=== PATIENT | male | born 1950 | race African-American/Black ===

== ENCOUNTER 2017-09-27 16:06 | Emergency (ER) | payer MEDICARE, MEDICAID ==
[~2017-09-27] VITALS: Ht 185.4 cm; Wt 91.0 kg
[2017-09-27 16:12] VITALS: BP 136/90
[2017-10-01] MEDS ORDERED: COR6 PO (13:52)
[2017-10-01] MEDS ORDERED: LISI-186 PO (13:52)
== END 2017-09-27 17:24 | disposition left against medical advice (07) ==
LOC: ER 16:32
DX: Z53.21 Procedure and treatment not carried out due to patient leaving prior to being seen by health care provider (principal)
CPT/HCPCS: 93005

== ENCOUNTER 2018-09-03 07:43 | Emergency (ER) | payer MEDICARE, MEDICAID ==
[~2018-09-03] VITALS: Ht 185.4 cm; Wt 92.0 kg
[~2018-09-03 07:43] MED LIST: COR6 PO; LISI-186 PO
[2018-09-03 07:49] VITALS: BP 159/59
== END 2018-09-03 08:44 | disposition home or self-care (01) ==
LOC: ER 08:08
DX: L03.313 Cellulitis of chest wall (principal); F17.200 Nicotine dependence, unspecified, uncomplicated; Z98.890 Other specified postprocedural states
CPT/HCPCS: 99283

== ENCOUNTER 2020-02-17 13:26 | Emergency (ER) | payer BC, MEDICAID ==
[~2020-02-17] VITALS: Ht 185.4 cm; Wt 100.0 kg
[2020-02-17] MEDS ORDERED: KETOROLAC 30MG/ML VIAL IM ONE (14:30)
[2020-02-17 14:48] VITALS: BP 159/107
== END 2020-02-17 16:44 | disposition home or self-care (01) ==
LOC: ER 14:21
DX: M19.90 Unspecified osteoarthritis, unspecified site (principal); Z79.899 Other long term (current) drug therapy
CPT/HCPCS: 73560; 96372; 99283; J1885

== ENCOUNTER 2021-03-14 10:44 | Emergency (ER) | payer BC, MEDICAID ==
[~2021-03-14] VITALS: Ht 182.9 cm; Wt 80.0 kg
[2021-03-14] MEDS ORDERED: FUROSEMIDE 20MG/2ML VIAL IVP ONE (11:15)
[2021-03-14 11:24] LABS: BASOPHILS % 0.4 % (0.0-2.0); EOSINOPHILS % 0.1 % (0.0-5.0); HEMATOCRIT. 44.1 % (42.0-52.0); HEMOGLOBIN. 14.7 g/dL (14.0-18.0); LYMPHOCYTES % 10.7 % (20.0-50.0); MEAN CORPUSCULAR HEMOGLOBIN 31.3 pg (28.0-32.0); MEAN CORPUSCULAR VOLUME 93.6 fL (80.0-94.0); MONOCYTES % 6.2 % (2.0-8.0); NEUTROPHILS % 82.6 % (40.0-76.0); PLATELET 173 x1000/uL (130-400); RED BLOOD CELL COUNT 4.72 mill/uL (4.7-6.1); RED CELL DISTRIBUTION WIDTH 15.5 % (11.6-14.6)
[2021-03-14] MEDS ORDERED: IPRATROPIUM BROMIDE (0.02%) 0.5MG/2.5ML NEB HHN STA (11:24)
[2021-03-14] MEDS ORDERED: ALBUTEROL (0.083%) 2.5MG/3ML NEB HHN STA (11:24)
[2021-03-14 11:31] LABS: CHLORIDE 106 mEq/L (98-107)
[2021-03-14 16:03] VITALS: BP 142/89
== END 2021-03-14 16:15 | disposition short-term general hospital (02) ==
LOC: ER 10:44 → CANBEDREQ 17:27
DX: I11.0 Hypertensive heart disease with heart failure (principal); I50.9 Heart failure, unspecified; I25.2 Old myocardial infarction; E78.00 Pure hypercholesterolemia, unspecified
CPT/HCPCS: 36415; 71045; 74176; 80053; 83690; 83880; 84484; 85025; 93005; 94640; 96374; 99285; J1940

== ENCOUNTER 2021-04-01 10:08 | Emergency (ER) | payer BC, MEDICAID ==
[~2021-04-01] VITALS: Ht 172.7 cm; Wt 82.0 kg
[2021-04-01 11:06] LABS: BASOPHILS % 0.5 % (0.0-2.0); EOSINOPHILS % 0.1 % (0.0-5.0); HEMATOCRIT. 39.9 % (42.0-52.0); HEMOGLOBIN. 13.7 g/dL (14.0-18.0); LYMPHOCYTES % 13.9 % (20.0-50.0); MEAN CORPUSCULAR HEMOGLOBIN 31.8 pg (28.0-32.0); MEAN CORPUSCULAR VOLUME 92.4 fL (80.0-94.0); MEAN PLATELET VOLUME 10.5 fl (7.4-10.4); MONOCYTES % 5.4 % (2.0-8.0); NEUTROPHILS % 80.1 % (40.0-76.0); PLATELET 224 x1000/uL (130-400); RED BLOOD CELL COUNT 4.32 mill/uL (4.7-6.1); RED CELL DISTRIBUTION WIDTH 15.5 % (11.6-14.6)
[2021-04-01 11:13] LABS: CHLORIDE 105 mEq/L (98-107)
[2021-04-01] MEDS ORDERED: FUROSEMIDE 40MG/4ML VIAL IVP ONE (12:00)
[2021-04-01 18:23] VITALS: BP 102/74
== END 2021-04-01 18:45 | disposition short-term general hospital (02) ==
LOC: ER 10:08 → CANBEDREQ 19:05
DX: I11.0 Hypertensive heart disease with heart failure (principal); I50.9 Heart failure, unspecified; I25.2 Old myocardial infarction; E78.00 Pure hypercholesterolemia, unspecified
CPT/HCPCS: 36415; 71045; 80053; 83690; 83880; 84484; 85025; 93005; 96374; 99285; J1940

== ENCOUNTER 2021-06-29 08:56 | Inpatient (IN) | payer OTHER, MEDICAID ==
[~2021-06-29] VITALS: Ht 185.4 cm; Wt 100.8 kg
[2021-06-29 10:21] LABS: BASOPHILS % 0.6 % (0.0-2.0); HEMATOCRIT. 45.8 % (42.0-52.0); LYMPHOCYTES % 9.1 % (20.0-50.0); MEAN CORPUSCULAR HEMOGLOBIN 31.7 pg (28.0-32.0); MEAN CORPUSCULAR VOLUME 96.9 fL (80.0-94.0); MONOCYTES % 8.4 % (2.0-8.0); NEUTROPHILS % 80.9 % (40.0-76.0); PLATELET 160 x1000/uL (130-400); RED BLOOD CELL COUNT 4.73 mill/uL (4.7-6.1); RED CELL DISTRIBUTION WIDTH 18.2 % (11.6-14.6)
[2021-06-29 10:28] LABS: CHLORIDE 104 mEq/L (98-107)
[2021-06-29] MEDS ORDERED: FUROSEMIDE 40MG/4ML VIAL IV ONE (10:45)
[2021-06-29] MEDS ORDERED: ZOLPIDEM TARTRATE 5MG TABLET PO PRN (20:15)
[2021-06-29] MEDS ORDERED: DOCUSATE SODIUM 100MG CAPSULE PO PRN (20:15)
[2021-06-29] MEDS ORDERED: CLONIDINE 0.1MG TABLET PO PRN (20:15)
[2021-06-29] MEDS ORDERED: MAGNESIUM/ALUMINUM HYDROXIDE/SIMETHICONE 30ML UDC PO PRN (20:15)
[2021-06-29] MEDS ORDERED: IPRATROPIUM/ALBUTEROL 0.5-3(2.5)MG/3ML NEB NEB PRN (20:15)
[2021-06-29] MEDS ORDERED: NA PHOS,M-B/NA PHOS,DI-BA ENEMA 118ML PR PRN (20:15)
[2021-06-29] MEDS ORDERED: ACETAMINOPHEN 325MG TABLET PO PRN ×2 (20:15)
[2021-06-29] MEDS ORDERED: ONDANSETRON HCL 4MG/2ML INJ IV PRN (20:15)
[2021-06-29] MEDS ORDERED: NITROGLYCERIN 0.4MG TABLET SL SL PRN (20:15)
[2021-06-29] MEDS ORDERED: GUAIFENESIN 200MG/10ML SUGAR FREE UDC PO PRN (20:15)
[2021-06-29] MEDS ORDERED: TRAMADOL 50MG TABLET PO PRN (20:52)
[2021-06-29 21:00] VITALS: BP 147/87
[2021-06-29] MEDS ORDERED: ENOXAPARIN 40MG/0.4ML SYR SUBCUT SCH (21:00)
[2021-06-29 21:03] LABS: T4 FREE 1.5 ng/dL (0.76-1.46)
[2021-06-29] MEDS: ASCORBIC ACID 500 MG TABLET PO SCH (22:14)
[2021-06-29] MEDS: FUROSEMIDE 40MG/4ML VIAL IVP SCH (22:15)
[2021-06-29] MEDS: SPIRONOLACTONE 25MG TABLET PO SCH (22:15)
[2021-06-29] MEDS: FAMOTIDINE 20MG TABLET PO SCH (22:15)
[2021-06-29 22:32] VITALS: BP 147/87
[2021-06-29 23:37] LABS: CREATINE KINASE MB FRACTION 4.6 ng/mL (0.5-3.6)
[2021-06-30] VITALS: BP 154/88
[2021-06-30 04:00] VITALS: BP 111/78
[2021-06-30 05:42] LABS: BASOPHILS % 0.5 % (0.0-2.0); EOSINOPHILS % 1.6 % (0.0-5.0); HEMATOCRIT. 45.3 % (42.0-52.0); LYMPHOCYTES % 12.2 % (20.0-50.0); MEAN CORPUSCULAR VOLUME 96.9 fL (80.0-94.0); MONOCYTES % 7.3 % (2.0-8.0); NEUTROPHILS % 78.4 % (40.0-76.0); PLATELET 151 x1000/uL (130-400); RED BLOOD CELL COUNT 4.68 mill/uL (4.7-6.1); RED CELL DISTRIBUTION WIDTH 17.8 % (11.6-14.6)
[2021-06-30 06:08] LABS: CHLORIDE 104 mEq/L (98-107)
[2021-06-30 06:26] LABS: PHOSPHORUS 3.9 mg/dL (2.5-4.9)
[2021-06-30 06:29] LABS: CREATINE KINASE 124 IU/L (39-308)
[2021-06-30 07:30] VITALS: BP 119/69
[2021-06-30] MEDS: SPIRONOLACTONE 25MG TABLET PO SCH ×2 (08:43→21:10)
[2021-06-30] MEDS: ASPIRIN 325MG EC TABLET PO SCH (08:43)
[2021-06-30] MEDS: ZINC SULFATE 220 MG ( 50 ) CAPSULE PO SCH (08:44)
[2021-06-30] MEDS: FUROSEMIDE 40MG/4ML VIAL IVP SCH ×2 (08:44→21:09)
[2021-06-30] MEDS: CHOLECALCIFEROL (D3) 1000 UNIT TABLET PO SCH (08:44)
[2021-06-30 12:00] VITALS: BP 119/94
[2021-06-30] MEDS: ASCORBIC ACID 500 MG TABLET PO SCH ×2 (12:06→21:10)
[2021-06-30 16:00] VITALS: BP 116/86
[2021-06-30 20:00] VITALS: BP 118/85
[2021-06-30] MEDS: FAMOTIDINE 20MG TABLET PO SCH (21:09)
[2021-06-30] MEDS: ENOXAPARIN 30MG/0.3ML SYR SUBCUT SCH (21:09)
[2021-07-01] VITALS: BP 110/76
[2021-07-01 04:00] VITALS: BP 109/73
[2021-07-01 08:00] VITALS: BP 117/85
[2021-07-01] MEDS: CHOLECALCIFEROL (D3) 1000 UNIT TABLET PO SCH (09:08)
[2021-07-01] MEDS: SPIRONOLACTONE 25MG TABLET PO SCH ×2 (09:08→20:51)
[2021-07-01] MEDS: ASCORBIC ACID 500 MG TABLET PO SCH ×2 (09:08→20:51)
[2021-07-01] MEDS: ASPIRIN 325MG EC TABLET PO SCH (09:08)
[2021-07-01] MEDS: FUROSEMIDE 40MG/4ML VIAL IVP SCH ×2 (09:08→20:50)
[2021-07-01] MEDS: ENOXAPARIN 30MG/0.3ML SYR SUBCUT SCH ×2 (09:09→20:52)
[2021-07-01] MEDS: ZINC SULFATE 220 MG ( 50 ) CAPSULE PO SCH (09:09)
[2021-07-01 12:00] VITALS: BP 109/76
[2021-07-01 16:00] VITALS: BP 120/86
[2021-07-01 20:00] VITALS: BP 123/93
[2021-07-01] MEDS: FAMOTIDINE 20MG TABLET PO SCH (20:50)
[2021-07-02] VITALS: BP 116/84
[2021-07-02 04:00] VITALS: BP 105/76
[2021-07-02 07:39] LABS: BASOPHILS % 0.6 % (0.0-2.0); EOSINOPHILS % 3.8 % (0.0-5.0); HEMATOCRIT. 41.7 % (42.0-52.0); HEMOGLOBIN. 13.8 g/dL (14.0-18.0); MEAN CORPUSCULAR HEMOGLOBIN 31.9 pg (28.0-32.0); MEAN CORPUSCULAR VOLUME 96.4 fL (80.0-94.0); MEAN PLATELET VOLUME 10.2 fl (7.4-10.4); NEUTROPHILS % 79.6 % (40.0-76.0); PLATELET 124 x1000/uL (130-400); RED BLOOD CELL COUNT 4.32 mill/uL (4.7-6.1); RED CELL DISTRIBUTION WIDTH 17.7 % (11.6-14.6)
[2021-07-02 08:00] VITALS: BP 135/79
[2021-07-02 08:07] LABS: CHLORIDE 104 mEq/L (98-107)
[2021-07-02 08:19] LABS: PHOSPHORUS 3.8 mg/dL (2.5-4.9)
[2021-07-02] MEDS: ASCORBIC ACID 500 MG TABLET PO SCH ×2 (08:36→20:20)
[2021-07-02] MEDS: ZINC SULFATE 220 MG ( 50 ) CAPSULE PO SCH (08:36)
[2021-07-02] MEDS: CHOLECALCIFEROL (D3) 1000 UNIT TABLET PO SCH (08:36)
[2021-07-02] MEDS: ASPIRIN 325MG EC TABLET PO SCH (08:36)
[2021-07-02] MEDS: SPIRONOLACTONE 25MG TABLET PO SCH ×2 (08:37→20:20)
[2021-07-02] MEDS: FUROSEMIDE 40MG/4ML VIAL IVP SCH ×2 (09:35→20:20)
[2021-07-02] MEDS: ENOXAPARIN 30MG/0.3ML SYR SUBCUT SCH (09:36)
[2021-07-02 12:00] VITALS: BP 119/70
[2021-07-02] MEDS ORDERED: NALOXONE HCL 0.4MG/ML VIAL IV PRN (14:00)
[2021-07-02] MEDS ORDERED: METOLAZONE 10MG TABLET PO NR (15:30)
[2021-07-02 15:58] VITALS: BP 115/83
[2021-07-02 20:00] VITALS: BP 114/84
[2021-07-02] MEDS: FAMOTIDINE 20MG TABLET PO SCH (20:20)
[2021-07-02] MEDS ORDERED: ENOXAPARIN 40MG/0.4ML SYR SUBCUT SCH (21:00)
[2021-07-03] VITALS: BP 114/80
[2021-07-03 04:00] VITALS: BP 106/73
[2021-07-03 05:17] LABS: CHLORIDE 102 mEq/L (98-107)
[2021-07-03 05:23] LABS: PHOSPHORUS 4.1 mg/dL (2.5-4.9)
[2021-07-03 05:39] LABS: BASOPHILS % 0.6 % (0.0-2.0); EOSINOPHILS % 4.2 % (0.0-5.0); HEMATOCRIT. 41.1 % (42.0-52.0); HEMOGLOBIN. 13.6 g/dL (14.0-18.0); LYMPHOCYTES % 9.3 % (20.0-50.0); MEAN CORPUSCULAR VOLUME 96.3 fL (80.0-94.0); MEAN PLATELET VOLUME 10.4 fl (7.4-10.4); NEUTROPHILS % 77.9 % (40.0-76.0); PLATELET 134 x1000/uL (130-400); RED BLOOD CELL COUNT 4.27 mill/uL (4.7-6.1); RED CELL DISTRIBUTION WIDTH 17.6 % (11.6-14.6)
[2021-07-03 08:00] VITALS: BP 120/84
[2021-07-03] MEDS: ASPIRIN 325MG EC TABLET PO SCH (08:45)
[2021-07-03] MEDS: ASCORBIC ACID 500 MG TABLET PO SCH (08:45)
[2021-07-03] MEDS: ZINC SULFATE 220 MG ( 50 ) CAPSULE PO SCH (08:46)
[2021-07-03] MEDS: SPIRONOLACTONE 25MG TABLET PO SCH (08:46)
[2021-07-03] MEDS: CHOLECALCIFEROL (D3) 1000 UNIT TABLET PO SCH (08:46)
[2021-07-03] MEDS: FUROSEMIDE 40MG/4ML VIAL IVP SCH (09:16)
[2021-07-03 12:00] VITALS: BP 118/74
[2021-07-03 16:00] VITALS: BP 108/76
== END 2021-07-03 17:05 | disposition home or self-care (01) | DRG 291 ==
LOC: ER 09:07 → 7EST 18:46 → EDBEDREQ 18:50 → EDBEDREQTM 18:50 → ENRESERV 19:33
PROVIDERS: ADMIT Internal Medicine; ATTEND Internal Medicine
DX: I11.0 Hypertensive heart disease with heart failure (principal); J96.01 Acute respiratory failure with hypoxia; N17.0 Acute kidney failure with tubular necrosis; E44.1 Mild protein-calorie malnutrition; I50.43 Acute on chronic combined systolic (congestive) and diastolic (congestive) heart failure; E78.00 Pure hypercholesterolemia, unspecified; E87.5 Hyperkalemia; Z82.49 Family history of ischemic heart disease and other diseases of the circulatory system; I25.2 Old myocardial infarction; Z68.29 Body mass index [BMI] 29.0-29.9, adult
CPT/HCPCS: 36415; 71045; 80048; 80053; 80061; 82550; 82553; 83036; 83735; 83880; 84100; 84439; 84443; 84484; 85025; 93005; 93306; 93970; 99285; J1650; J1940; J2405